=== PATIENT | male | born 1960 | race Caucasian/White ===

== ENCOUNTER 2020-10-28 08:01 | Emergency (ER) | payer BC, OTHER ==
[~2020-10-28] VITALS: Ht 170.2 cm; Wt 77.1 kg
[2020-10-28 08:01] VITALS: BP_SYST 128
[2020-10-28] MEDS ORDERED: ADENOSINE 6MG/2ML VIAL ONE (08:09)
[2020-10-28] MEDS ORDERED: METOPROLOL TARTRATE 5 MG/5 ML VIAL ONE (08:14)
[2020-10-28] MEDS ORDERED: ADENOSINE 6MG/2ML VIAL IVP ONE (08:15)
[2020-10-28] MEDS ORDERED: METOPROLOL TARTRATE 5 MG/5 ML VIAL IVP ONE (08:15)
[2020-10-28 08:32] LABS: BASOPHILS % (AUTO) 0.6 % (0.0-2.0); EOSINOPHILS % (AUTO) 0.6 % (0.0-4.0); HEMATOCRIT 44.6 % (36-54); HEMOGLOBIN 15.3 g/dL (14.0-18.0); LYMPHOCYTES # (AUTO) 3.3 K/uL (1.0-5.5); LYMPHOCYTES % (AUTO) 42.4 % (20.5-51.5); MEAN CORPUSCULAR HEMOGLOBIN 31 pg (27-31); MEAN CORPUSCULAR HGB CONC 34 % (32-36); MEAN CORPUSCULAR VOLUME 91 fL (79.0-98.0); MONOCYTES # (AUTO) 0.5 K/uL (0.0-1.0); MONOCYTES % (AUTO) 5.9 % (1.7-9.3); NEUTROPHILS # (AUTO) 3.9 K/uL (1.8-7.7); NEUTROPHILS % (AUTO) 50.5 % (40.0-70.0); PLATELET COUNT (AUTO) 169 K/uL (130-430); RED BLOOD CELL COUNT(AUTO) 4.92 MIL/uL (4.2-6.2); RED CELL DISTRIBUTION WIDTH 12.8 % (9.0-15.0); WHITE BLOOD COUNT (AUTO) 7.7 K/uL (4.8-10.8)
[2020-10-28] MEDS ORDERED: METO25TA6 PO (08:41)
[2020-10-28] MEDS ORDERED: LIP20 PO (08:41)
[2020-10-28 08:42] LABS: ANION GAP 10 (5-15); CALCIUM 9.4 mg/dL (8.4-11.0); CHLORIDE 106 mmol/L (98-107); GFR AFRICAN AMERICAN 97 mL/min (>90); GLUCOSE 109 mg/dL (70-99); POTASSIUM 3.6 mmol/L (3.5-5.1); SODIUM SERUM 141 mmol/L (136-145); UREA NITROGEN, BLOOD 15 mg/dL (8-21)
[2020-10-28 08:51] LABS: ALANINE AMINOTRANSFERASE 23 U/L (12-78); ALBUMIN 3.8 g/dL (3.4-4.8); ASPARTATE AMINOTRANSFERASE 21 U/L (10-37); TOTAL BILIRUBIN 0.9 mg/dL (0.0-1.0)
[2020-10-28 09:09] VITALS: BP_SYST 120
== END 2020-10-28 09:10 | disposition home or self-care (01) ==
LOC: SED 08:01
DX: I47.1 Supraventricular tachycardia (principal); R07.89 Other chest pain; R00.2 Palpitations
CPT/HCPCS: 36415; 80053; 84484; 85025; 93005; 96374; 96375; 99291; J0153; J3490